=== PATIENT | female | born 1995 | race Caucasian/White ===

== ENCOUNTER 2016-07-13 23:30 | Emergency (ER) | payer OTHER ==
[~2016-07-13] VITALS: Ht 154.9 cm; Wt 86.2 kg
[2016-07-13 23:46] VITALS: BP 151/87; Ht 154.9 cm; Wt 86.2 kg
[2016-07-13] MEDS ORDERED: PENI500T2 PO (23:55)
--- NOTE | 2016-07-13 23:57 | EMERGENCY ROOM VISIT NOTE ---
History Report prepared by Scrib[place]: Stacie Combs Under the Supervision of: Dr. Carlos Alberto Herrera D.O. First contact with patient: 23:48 Chief Complaint: DENTAL PAIN Stated Complaint: TOOTHACHE Nursing Triage Summary: right lower dental pain History of Present Illness The patient is a 21 year old female who presents to the Emergency Room with complaints of constant right sided dental pain beginning 2 days ago. The patient states that she has been having thumping pain in her gums that feels like a heart beat, ear pain, and intermittent gum swelling. She reports that the swelling comes and goes. She notes that she has been taking Tylenol without relief of her symptoms. Source of History: patient Onset: 2 days ago Position: teeth Quality: other (beating) Timing: constant Note: The patient states that she has been having thumping pain in her gums that feels like a heart beat, ear pain, and intermittent gum swelling. Review of Systems See HPI for pertinent positives & negatives. A total of 10 systems reviewed and were otherwise negative. Past Medical & Surgical Medical Problems: (1) Amniotic fluid leaking (2) Bacterial vaginosis Family History Diabetes mellitus Hypertension Social History Smoking Status: Never Smoker Marital Status: single Housing Status: lives with family Current/Historical Medications Scheduled Penicillin V Potassium (Veetids), 1 TAB PO QID Allergies Coded Allergies: No Known Allergies (Unverified , 07/14/16) Physical Exam Vital Signs Date Time Temp Pulse Resp B/P Pulse Ox O2 Delivery O2 Flow Rate FiO2 07/13/16 23:46 37.2 118 16 151/87 100 Room Air Physical Exam CONSTITUTIONAL/VITAL SIGNS: Reviewed / noted above. GENERAL: Non-toxic in appearance. INTEGUMENTARY: Warm, dry, and [place]. HEAD: Normocephalic. EYES: without scleral icterus or trauma. ENT/OROPHARYNX: clear and moist. LYMPHADENOPATHY/NECK: Is supple without lymphadenopathy or meningismus. RESPIRATORY: Lungs clear and equal. CARDIOVASCULAR: Regular rate and rhythm. GI/ABDOMEN: Soft and nontender. No organomegaly or pulsatile mass. No rebound or guarding. Normal bowel sounds. EXTREMITIES: Warm and well perfused. BACK: No CVA tenderness. NEUROLOGICAL: Intact without focal deficits. PSYCHIATRIC: normal affect. MUSCULOSKELETAL: Normally developed with good muscle tone. Medical Decision & Procedures Medications Administered Medications (Trade) Dose Ordered Sig/Fransisco Route Start Time Stop Time Status Last Admin Dose Admin Penicillin V Potassium (Veetids Tab) 500 mg ONE ONCE PO 07/14/16 00:00 07/14/16 00:01 DC 07/13/16 23:59 500 MG ED Course 2348: Previous medical records were reviewed. The patient was evaluated in room C11B. A complete history and physical examination was performed. 0000: Veetids Tab 500mg PO. 0015: On reevaluation, the patient is hemodynamically stable. I discussed the results and findings with the patient. She verbalized agreement of the treatment plan. The patient was discharged home. Medical Decision Differential diagnoses include dental infection, facial cellulitis, gum infection, dental caries. This is a 21-year-old female who presents to the ED with a chief complaint of dental and gum pain. Details listed above. Exam of the dentition does not reveal any obvious dental decay or abscess. The gums appear to be intact without inflammation. The patient was told to follow-up with dentist. She'll be started on penicillin. Impression Primary Impression: Dentalgia Scribe Attestation The scribe's documentation has been prepared under my direction and personally reviewed by me in its entirety. I confirm that the note above accurately reflects all work, treatment, procedures, and medical decision making performed by me. Departure Information Dispostion Home / Self-Care Prescriptions Penicillin V Potassium (VEETIDS) 500 Mg Tab 1 TAB PO QID for 10 Days, #40 TAB Prov: Carlos Alberto Herrera D.O. 07/13/16 Referrals No Doctor, Assigned (PCP) Patient Instructions [facility]
[2016-07-14] MEDS ORDERED: PENICILLIN V POTASSIUM 250 MG TAB PO ONE
[2016-07-14 00:02] VITALS: PULSE 101; TEMP 37.2; O2SAT 100
== END 2016-07-14 00:04 | disposition home or self-care (01) ==
LOC: C.EDB 23:32 → C.EDC 07-14 00:04
DX: K08.89 Other specified disorders of teeth and supporting structures (principal)